=== PATIENT | female | born 1990 | race Caucasian/White ===

== ENCOUNTER 2017-02-21 15:13 | Emergency (ER) | payer OTHER ==
[~2017-02-21] VITALS: Ht 185.4 cm; Wt 95.3 kg
--- NOTE | 2017-02-21 15:30 | NUR ---
BIBSELF TO ED DT CHEST PAIN, SHOOTING PAIN RADIATING TO LEFT ARM, 8. PATIENT DENIES N/V. NO WEAKNESS. SKIN IS WARM TO TOUCH AND NON DIAPHORETIC, AFEBRILE. VSS
--- NOTE | 2017-02-21 15:55 | NUR ---
XRAY DONE AT BS.
[2017-02-21] MEDS ORDERED: HYDROCODONE/APAP 5/325MG 1 EACH TABLET ONE (16:53)
--- NOTE | 2017-02-21 16:59 | NUR ---
Patient discharged to home in stable condition. Written and verbal after care instructions given. Patient verbalizes understanding of instruction.
[2017-02-21 17:00] VITALS: BP 135/78
[2017-02-21] MEDS ORDERED: HYDROCODONE/APAP 5/325MG 1 EACH TABLET PO ONE (17:00)
== END 2017-02-21 17:01 | disposition home or self-care (01) ==
LOC: ER 15:15
DX: R07.89 Other chest pain (principal); G51.0 Bell's palsy; F17.200 Nicotine dependence, unspecified, uncomplicated; Z88.2 Allergy status to sulfonamides
CPT/HCPCS: 71010; 99283; A4606; Z7610